=== PATIENT | male | born 1980 | race Caucasian/White ===

== ENCOUNTER → 2021-08-26 19:28 | Outpatient (CLI) | payer MEDICAID, SELFPAY ==
[2021-08-26 20:40] LABS: Basophils # 0.1 K/mm3 (0-0.2); Eosinophils # 0.3 K/mm3 (0.0-0.4); Eosinophils % 3.3 % (0.1-12.0); Hematocrit 47.9 % (42.0-52.0); Hemoglobin 16.4 g/dL (14.1-18.0); Lymphocytes # 2.2 K/mm3 (0.7-4.5); Lymphocytes % 25.6 % (10-50); Mean Corpuscular HGB Conc 34.3 g/dL (31.8-35.4); Mean Corpuscular Hemoglobin 32.5 pg (27.0-31.2); Mean Corpuscular Volume 94.7 fl (80-94); Mean Platelet Volume 8.8 fl (7.4-10.4); Monocytes # 0.5 K/mm3 (0.1-1.0); Monocytes % 5.8 % (1.7-9.3); Neutrophils # 5.4 K/mm3 (1.8-7.8); Neutrophils % 64.2 % (37.0-80.0); Platelet Count 391 K/mm3 (142-424); Red Blood Count 5.06 M/mm3 (4.60-6.20); Red Cell Distribution Width 13.5 % (11.5-17.5); White Blood Count 8.4 K/mm3 (4.8-10.8)
[2021-08-26 21:19] LABS: Alanine Aminotransferase 93 U/L (12-78); Albumin Level 4.9 g/dl (3.5-5.0); Albumin/Globulin Ratio 1.4 (1.1-1.8); Alkaline Phosphatase 100 U/L (38-126); Anion Gap 18.7 mEq/L (5-15); Aspartate Amino Transferase 87 U/L (17-59); Bilirubin,Total 2.4 mg/dl (0.2-1.3); Blood Urea Nitrogen 13 mg/dl (9-20); Calcium 9.6 mg/dl (8.4-10.2); Carbon Dioxide 26 mmol/L (22.0-30.0); Chloride 97 mmol/L (98-107); Chol/HDL Ratio 3.3 (1-3.5); Cholesterol 170 mg/dl (140-200); Estimated Glomerular Filt Rate 124 ml/min (>60); GFR (African American) 150 ML/MIN (>60); Globulin 3.4 g/dL (1.3-3.2); Glucose 97 mg/dl (74-100); HDL Cholesterol 52 mg/dl (40-60); Potassium 3.7 mmoL/L (3.5-5.1); Sodium 138 mmol/L (136-145); Total Protein,Serum 8.3 g/dl (6.3-8.2); Triglycerides 92 mg/dl (30-150); VLDL Cholesterol 18 mg/dL (0-40)
[2021-08-26 21:30] LABS: Direct LDL Cholesterol 84.27 mg/dL (100-129); Free T4 (Free Thyroxine) 1.29 ng/dl (0.78-2.19)
[2021-08-26 21:32] LABS: 25-OH Vitamin D, Total 31.7 ng/mL (30-100)
[2021-08-26 22:07] LABS: Thyroid Stimulating Hormone 0.48 uIU/mL (0.465-4.68)
[2021-08-28 11:17] LABS: HIV Screen 4th Generation wRfx Non Reactive (Non Reactive)
[2021-08-28 12:37] LABS: Hep A Ab, IgM Negative (Negative); Hep A Ab, Total Positive (Negative); Hep B Core Ab, Total Negative (Negative); Hep B Surface Ab, Qual Reactive (.); Hepatitis B Surface Antigen Negative (Negative); Hepatitis C Antibody >11.0 s/co ratio (0.0-0.9)
[2021-08-29 04:08] LABS: ALT (SGPT) P5P 98 IU/L (0-55); Alpha 2-Macroglobulins, Qn 136 mg/dL (110-276); Apolipoprotein A-1 136 mg/dL (101-178); Bilirubin, Total 2.1 mg/dL (0.0-1.2); Fibrosis Score 0.21 (0.00-0.21); GGT 44 IU/L (0-65); Haptoglobin 289 mg/dL (23-355); Necroinflammat Activity Grade A1-A2 (.); Necroinflammat Activity Score 0.52 (0.00-0.17)
[2021-08-29 18:28] LABS: HCV Genotype Charge YES; Hepatitis C Genotype 3 (.)
== END ==
PROVIDERS: Visit Provider Emergency Medicine
DX: R53.83 Other fatigue (principal); E55.9 Vitamin D deficiency, unspecified; R74.8 Abnormal levels of other serum enzymes; R94.5 Abnormal results of liver function studies; Z11.4 Encounter for screening for human immunodeficiency virus [HIV]
CPT/HCPCS: 80053; 80061; 81596; 82306; 84439; 84443; 85025; 86703; 86704; 86706; 86708; 87340; 87380; 87522; 87902; G0432

== ENCOUNTER → 2021-09-11 08:19 | Outpatient (CLI) | payer MEDICAID, SELFPAY ==
--- NOTE | 2021-09-11 08:19 | MR_ITS ---
PROCEDURE: MR LUMBAR SPINE WO CON CLINICAL INDICATION: back pain Left-sided low back pain. Bilateral leg numbness and tingling. Symptoms for years. No injury or trauma. COMPARISON: MR FLASK CLEANER/O MRI-L-SPINE W/O from 07/20/2015 TECHNIQUE: Standard multiplanar multiecho sequences are performed without contrast. 3-D MIP and myelographic images are also rendered and reviewed. Patient had a hard time staying still and best possible images were sent. FINDINGS: At L1-2, there is no significant canal or neural foraminal stenosis. At L2-3, there is no significant canal or neural foraminal stenosis however there is facet arthropathy. At L3-4, the study is nondiagnostic due to patient moving. At L4-5, there is a tiny central disc protrusion. There is facet arthropathy and ligamentum flavum hypertrophy producing mild canal stenosis however no neuroforaminal stenosis. There is significant facet arthropathy at L4-5 with fluid in the facet joints suggesting this may be a pain generator. At L5-S1, there is a moderate size left paracentral disc protrusion producing mild canal stenosis and no neuroforaminal stenosis. There is significant facet arthropathy at this level with fluid in both facet joints suggesting this may be a pain generator. IMPRESSION: Motion limited study demonstrating severe facet arthropathy with edema in the facet joints at L4-5 and L5-S1, suggesting this may be a pain generator. Consider bilateral L4-5 and L5-S1 facet injections. Dictated by: Amy Maldonado MD 09/11/2021 12:49 Amy Maldonado MD in [place] 09/11/2021 12:49
== END ==
PROVIDERS: PCP Emergency Medicine; Visit Provider Emergency Medicine
DX: R01.1 Cardiac murmur, unspecified (principal); M54.9 Dorsalgia, unspecified
CPT/HCPCS: 72148; 76376; 93306

== ENCOUNTER → 2021-09-13 06:46 | Outpatient (CLI) | payer MEDICAID, SELFPAY ==
--- NOTE | 2021-09-13 06:47 | NM_ITS ---
APPROVED REPORT Exam: Nuclear Stress Test Indication: HTN, HYPERLIPIDEMIA, FM HX, C.P., SOB, FATIGUE Patient Location: Outpatient Stress Tech: Sussy Gibson Ht: 5 ft 2 in Wt: 185 lbs HR: 102 bpm BP: 163/111 mmHg BSA: 1.85 m2 BMI: 33.8 History: HTN, HYPERLIPIDEMIA, FM HX, C.P., SOB, FATIGUE Procedure: Patient exercised on Brando protocol 9 :00 minutes and sec, resting heart rate 102 bpm, resting blood pressure 163/111 mmHg, with exercise maximum heart rate achived was 140 bpm which is 78 % of the maximum predicted heart rate and blood pressure was 200/107 mmHg. Test was stopped due to DYSPNEA, SYNCOPE. Patient denied any complaint of chest pain. Patient has good exercise capacity, achieved 10.7 METs of workload on treadmill, the blood pressure response to exercise was Hypertensive. PT DID NOT TAKE HIS MORNING B/P MEDICINE. IN RECOVERY PATIENT'S BLOOD PRESSURE TOBI TO 200/107 [facility] 10[facility] OF BISOPROLOL. Electrocardiogram Sinus rhythm, with exercise there is less than 1.[address] segment depression noted from the baseline EKG. The EKG portion of the exercise Myoview is nondiagnostic as patient did not achieve the target heart rate. Cardiac Stress and Resting SPECT Images: Cardiac Stress and Resting SPECT images were obtained using technetium 99m Myoview 30.0 mCi stress and 10.14 mCi at rest. Gated SPECT for analysis of segmental wall motion and calculation of the ejection fraction also done. Prone images were also obtained. Cardiac stress and resting SPECT images show uniform myocardial activity without segmental perfusion abnormality, computer derived ejection fraction is 51% with no regional wall motion abnormality, right ventricle is normal size and contractility. Conclusion: 1. The EKG portion of exercise Myoview was nondiagnostic as patient did not achieve the target heart rate, patient has good exercise capacity achieved 10.7 mets of workload on treadmill, the blood pressure response to exercise was hypertensive. 2. No scintigraphic evidence of reversible ischemia seen at this level of exercise, compared right ejection fraction is 51% with no regional wall motion abnormality, right ventricle is normal size and contractility. Electronically signed by : Rafa Gayle MD 09/19/2021 12:56:43
--- NOTE | 2021-09-13 06:47 | CA_ITS ---
APPROVED REPORT Exam: Exercise Treadmill Technologist: Sussy Gibson, Ht: 5 ft 2 in Wt: 183 lbs BSA: 1.84 m2 HR: 83 bpm BP: 171/75 mmHg Rhythm: NSR Medical History Medical History: HTN, Hyperlipidemia Medications: Omeprazole,,,,, Aspirin,,,,, Propranolol,,,,, Gabapentin,,,,, HCTZ,,,,, Albuterol,,,,, Trazodone,,,,, Allergies: CODEINE, PROPOXYPHENE Cardiac Risk Factors: HTN, Hyperlipidemia, Smoking Stress Test Details Test: Manual Treadmill, Exercise stress testing was performed using a Brando protocol. HR Resting HR: 102 bpm Max Heart Rate (APMHR): 179.988172 bpm Max HR Achieved: 140 bpm Target HR (85% APMHR): 152.840646 bpm % of APMHR: 78.21 Recovery HR: 93 bpm BP Resting BP: 163/111 mmHg Max BP: 200/107 mmHg Recovery BP: 142.0/82.0 mmHg ECG Resting ECG: NSR Clinical Reason for Termination: Dyspnea Exercise duration: 09:01 min Highest Stage Achieved: Exercise capacity: 10.7 METs Stress ECG Conclusion MAX HR: 140. % OF PM: 92. MAX B/P: 200/107. METS 10.7. TEST STOPPED DUE TO DIZZINESS, SOA. NO CP. PT JUST STATED HE FELT LIKE HE WAS GOING TO PASS OUT. <1.[address] SEGMENT CHANGES. ABNORMAL TO SUBMAXIMAL HEART RATE. Test Summary Stage 3 . . . . . . . . REST . . . . . . . Standing REST 05:03 0.0 0.0 102 . 163/111 . . Stage 1 01:00 10.0 1.7 115 . . . . Stage 1 02:00 10.0 1.7 117 . . . . Stage 1 03:00 10.0 1.7 127 . 138/ 82 . . Stage 2 01:00 12.0 2.5 126 . . . . Stage 2 02:00 12.0 2.5 127 . . . . Stage 2 03:00 12.0 2.5 130 . 150/ 90 . . Stage 3 . . . . . . . Protocol changed to Manual Treadmill Stage 3 01:00 18.0 3.0 135 . . . . Stage 3 02:00 0.0 3.0 135 . . . . Stage 3 03:00 0.0 1.0 132 . . . . Stage 3 03:01 0.0 1.0 132 . . . Stop exercise at 09:01 RECOVERY 01:00 0.0 0.0 123 . . . . RECOVERY 02:00 0.0 0.0 94 . . . . RECOVERY 03:00 0.0 0.0 114 . 200/107 . . RECOVERY 04:00 0.0 0.0 105 . 200/107 . . RECOVERY 05:00 0.0 0.0 118 . 200/107 . . RECOVERY 06:00 0.0 0.0 111 . 198/105 . . RECOVERY 07:00 0.0 0.0 93 . 163/125 . . RECOVERY 08:00 0.0 0.0 115 . 163/125 . . RECOVERY 09:00 0.0 0.0 114 . 163/125 . . RECOVERY 10:00 0.0 0.0 109 . 163/125 . . RECOVERY 11:00 0.0 0.0 118 . 142/ 82 . . RECOVERY 12:00 0.0 0.0 0 . 142/ 82 . . RECOVERY 13:00 0.0 0.0 0 . 142/ 82 . . RECOVERY 14:00 0.0 0.0 0 . 142/ 82 . . RECOVERY 15:00 0.0 0.0 0 . 142/ 82 . . RECOVERY 15:39 0.0 0.0 0 . 142/ 82 . . Electronically signed by : Fadi Bennett MD 09/13/2021 14:29:27
== END ==
PROVIDERS: PCP Emergency Medicine; Visit Provider Internal Medicine Cardiovascular Disease
DX: R07.9 Chest pain, unspecified (principal); R06.00 Dyspnea, unspecified; R42 Dizziness and giddiness; E78.5 Hyperlipidemia, unspecified; I10 Essential (primary) hypertension; J45.909 Unspecified asthma, uncomplicated; K21.9 Gastro-esophageal reflux disease without esophagitis; R06.83 Snoring; R40.0 Somnolence; R53.83 Other fatigue; R94.31 Abnormal electrocardiogram [ECG] [EKG]
CPT/HCPCS: 78452; 93017; 95806; A9502

== ENCOUNTER 2021-09-19 11:48 | Emergency (ER) | payer MEDICAID, SELFPAY ==
[2021-09-19 11:50] VITALS: BP 148/99; PULSE 92; RESP 19; TEMP 37.1; O2SAT 98; BMI 31.8
--- NOTE | 2021-09-19 12:34 | HMH.EDUTC ---
[facility] Disposition Condition on Discharge: Good <Silvia Lock - Last Filed: 09/19/21 21:44> Condition on Discharge: Good Time of Disposition: 12:53 <Catrina Alvarenga - Last Filed: 09/23/21 21:47> Clinical Impression: Shortness of breath Hand swelling Qualifiers: Laterality: bilateral Qualified Code(s): M79.89 - Other specified soft tissue disorders Disposition: Home, Self-Care Additional Instructions: It is important to follow-up with your primary care physician to assess how your symptoms are doing with the treatments that we are giving you. Prescriptions: Naproxen [Naproxen 500mg tab] 500 mg PO BID 10 Days #20 tab Transmission Status: Received by [facility] Referrals: Eric Kay MD [Primary Care Provider] - Medical Decision Making - Medical Records Medical records reviewed: Yes: I reviewed the patient's medical records. - Lab Data Result diagrams: 09/19/21 13:35 09/19/21 13:35 <HaydeSilvia - Last Filed: 09/19/21 21:44> - Tima Inquiry Pt receiving controlled substance: No Tima was queried for this patient: No - Lab Data Result diagrams: 09/19/21 13:35 09/19/21 13:35 <LyleLizette - Last Filed: 09/23/21 21:47> Vital Signs: 09/19/21 11:50 09/19/21 13:40 09/19/21 14:01 Temperature 98.8 F 98.1 F Temperature Source Oral Oral Pulse Rate 72 Pulse Rate [Right Brachial] 92 H 69 Respiratory Rate 19 18 18 Blood Pressure 124/73 Blood Pressure [Right Arm] 148/99 H 138/73 Blood Pressure Mean 90 Blood Pressure Mean [Right Arm] 115 94 Blood Pressure Source [Right Arm] Automatic Cuff Automatic Cuff Blood Pressure Position [Right Arm] Sitting Sitting 02 Sat by Pulse Oximetry 98 99 97 Oxygen Delivery Method Room Air Room Air 09/19/21 14:31 09/19/21 15:43 Temperature 98.1 F Temperature Source Pulse Rate 91 H 74 Pulse Rate [Right Brachial] Respiratory Rate 20 14 Blood Pressure 120/84 109/82 L Blood Pressure [Right Arm] Blood Pressure Mean 96 Blood Pressure Mean [Right Arm] Blood Pressure Source [Right Arm] Blood Pressure Position [Right Arm] 02 Sat by Pulse Oximetry 97 Oxygen Delivery Method - Lab Data Lab Results 09/19/21 13:35: WBC 6.1, RBC 4.91, Hgb 15.5, Hct 47.7, MCV 97.2 H, MCH 31.6 H, MCHC 32.6, RDW 13.7, Plt Count 369, MPV 8.4, Neut % (Auto) 55.8, Lymph % (Auto) 31.5, [place] % (Auto) 6.0, Eos % (Auto) 5.1, Baso % (Auto) 1.6, Neut # (Auto) 3.4, Lymph # (Auto) 1.9, [place] # (Auto) 0.4, Eos # (Auto) 0.3, Baso # (Auto) 0.1 09/19/21 13:35: Sodium 140, Potassium 4.1, Chloride 102, Carbon Dioxide 31 H, Anion Gap 11.1, BUN 6 L, Creatinine 0.50 L, Estimated Creat Clear 225, Estimated GFR 183, Est GFR ( Amer) 222, Glucose 105 H, Calcium 9.0, Total Bilirubin 0.5, AST 62 H, ALT 63, Alkaline Phosphatase 106, Troponin I < 0.01, NT-Pro-B Natriuret Pep 59.1, Total Protein 7.4, Albumin 4.3, Globulin 3.1, Albumin/Globulin Ratio 1.4 Orders (Tests/Meds): ED MEDICATIONS Discontinued Medications Generic Name Dose Route Start Last Admin Trade Name Freq PRN Reason Stop Dose Admin Belladonna Alkaloids 60 ml 09/19/21 14:24 09/19/21 14:36 Gi Cocktail 60ml Udc PO 09/19/21 14:25 60 ml ONCE ONE Administration Medical Decision Narrative: Seen here in the emergency department, EKG was normal. Patient did have an elevation of troponin, BNP was not elevated. Patient main concern was his bilateral hand tingling and numbness. He was given a GI cocktail, was hemodynamically stable throughout the course of his emergency department stay. chest x-ray was completed and patient had no significant changes on chest x-ray. Findings discussed with the patient, he was encouraged to take naproxen in the meantime for his hand pain and to follow-up with his primary care physician. (Hayde,Silvia) Patient states he recently had stress test and seen Cardiology clinic but they had to stop the stress test due to he felt light headed like he was going t
--- NOTE | 2021-09-19 12:53 | PC.NURSE ---
PATIENT SENT TO ER PER Jena ALEJO APRN FOR FURTHER EVALUATION. REPORT GIVEN TO Amairani NEELY RN
--- NOTE | 2021-09-19 13:24 | ECG_ITS ---
APPROVED REPORT Exam: Resting ECG HR:74 bpm ECG Measurements Heart Rate 74 AXES AK 120 P 46 QRSd 78 QRS 83 QT 364 T 78 QTc 404 Conclusion Normal sinus rhythm Normal ECG Electronically signed by : Daniel Peterson MD 09/20/2021 22:38:51
[2021-09-19 13:40] VITALS: BP 138/73; PULSE 69; RESP 18; TEMP 36.7; O2SAT 99; BMI 32.9
--- NOTE | 2021-09-19 13:44 | XR_ITS ---
PROCEDURE: XR CHEST 2V CLINICAL HISTORY: tingling COMPARISON: CR CXR CHEST(2 VIEWS-NOT PORTABLE) from 11/22/2014 CR CXR CHEST(2 VIEWS-NOT PORTABLE) from 07/12/2015 CR CXR CHEST(2 VIEWS-NOT PORTABLE) from 12/07/2015 FINDINGS: The cardiomediastinal silhouette and pulmonary vascularity are within normal limits. Calcified granulomas are present in the right lower lobe and left upper lobe. The remaining lungs are clear. No acute bony abnormalities. IMPRESSION: No acute findings. Dictated by: Riaz Ragsdale MD 09/19/2021 15:46 Riaz Ragsdale MD in [place] 09/19/2021 15:46
[2021-09-19 13:53] LABS: Basophils # 0.1 K/mm3 (0-0.2); Basophils % 1.6 % (0.1-2.0); Eosinophils # 0.3 K/mm3 (0.0-0.4); Eosinophils % 5.1 % (0.1-12.0); Hematocrit 47.7 % (42.0-52.0); Hemoglobin 15.5 g/dL (14.1-18.0); Lymphocytes # 1.9 K/mm3 (0.7-4.5); Lymphocytes % 31.5 % (10-50); Mean Corpuscular HGB Conc 32.6 g/dL (31.8-35.4); Mean Corpuscular Hemoglobin 31.6 pg (27.0-31.2); Mean Corpuscular Volume 97.2 fl (80-94); Mean Platelet Volume 8.4 fl (7.4-10.4); Monocytes # 0.4 K/mm3 (0.1-1.0); Neutrophils # 3.4 K/mm3 (1.8-7.8); Neutrophils % 55.8 % (37.0-80.0); Platelet Count 369 K/mm3 (142-424); Red Blood Count 4.91 M/mm3 (4.60-6.20); Red Cell Distribution Width 13.7 % (11.5-17.5); White Blood Count 6.1 K/mm3 (4.8-10.8)
[2021-09-19 14:01] VITALS: BP 124/73; PULSE 72; RESP 18; O2SAT 97
[2021-09-19 14:07] LABS: Chloride 102 mmol/L (98-107); Potassium 4.1 mmoL/L (3.5-5.1); Sodium 140 mmol/L (136-145)
[2021-09-19 14:10] LABS: Alanine Aminotransferase 63 U/L (12-78); Albumin Level 4.3 g/dl (3.5-5.0); Albumin/Globulin Ratio 1.4 (1.1-1.8); Alkaline Phosphatase 106 U/L (38-126); Anion Gap 11.1 mEq/L (5-15); Aspartate Amino Transferase 62 U/L (17-59); Bilirubin,Total 0.5 mg/dl (0.2-1.3); Blood Urea Nitrogen 6 mg/dl (9-20); Carbon Dioxide 31 mmol/L (22.0-30.0); Creatinine Clearance Estimated 225 mL/min (50-200); Estimated Glomerular Filt Rate 183 ml/min (>60); GFR (African American) 222 ML/MIN (>60); Globulin 3.1 g/dL (1.3-3.2); Glucose 105 mg/dl (74-100); Total Protein,Serum 7.4 g/dl (6.3-8.2)
[2021-09-19 14:19] LABS: NT Pro Brain Natriuretic Pep. 59.1 pg/mL (0-125)
[2021-09-19 14:23] LABS: Troponin I < 0.01 ng/ml (0.00-0.034)
[2021-09-19 14:31] VITALS: BP 120/84; PULSE 91; RESP 20; O2SAT 97
[2021-09-19 15:43] VITALS: BP 109/82; PULSE 74; RESP 14; TEMP 36.7; O2SAT 97
== END 2021-09-19 15:44 | disposition home or self-care (01) ==
LOC: UTC 11:49 → ER 12:54
PROVIDERS: Emergency Provider Emergency Medicine; PCP Emergency Medicine
DX: R20.2 Paresthesia of skin (principal); M79.89 Other specified soft tissue disorders; R06.02 Shortness of breath
CPT/HCPCS: 71046; 80053; 83880; 84484; 85025; 93005; 99283

== ENCOUNTER 2021-09-24 13:05 | Outpatient (CLI) | payer MEDICAID, SELFPAY ==
[2021-09-24 14:01] VITALS: BP 150/92; PULSE 101; RESP 18; TEMP 36.8; O2SAT 97
[2021-09-24 15:23] VITALS: BP 149/97; PULSE 99; RESP 17; O2SAT 97
== END 2021-09-24 15:30 | disposition home or self-care (01) ==
LOC: INF 13:06
PROVIDERS: PCP Emergency Medicine; Visit Provider Emergency Medicine
DX: E86.0 Dehydration (principal)
CPT/HCPCS: 96360; 96375; J2405

== ENCOUNTER → 2021-10-14 15:33 | Outpatient (CLI) | payer MEDICAID, SELFPAY | PROVIDERS: Visit Provider Emergency Medicine | DX: R60.9 Edema, unspecified (principal) ==

== ENCOUNTER → 2021-10-15 17:13 | Outpatient (CLI) | payer MEDICAID, SELFPAY ==
[2021-10-15 18:28] LABS: Basophils # 0.1 K/mm3 (0-0.2); Basophils % 0.6 % (0.1-2.0); Eosinophils # 0.1 K/mm3 (0.0-0.4); Eosinophils % 1.5 % (0.1-12.0); Hematocrit 45.6 % (42.0-52.0); Hemoglobin 15.6 g/dL (14.1-18.0); Lymphocytes # 2.3 K/mm3 (0.7-4.5); Lymphocytes % 24.2 % (10-50); Mean Corpuscular HGB Conc 34.1 g/dL (31.8-35.4); Mean Corpuscular Hemoglobin 30.8 pg (27.0-31.2); Mean Corpuscular Volume 90.2 fl (80-94); Mean Platelet Volume 8.2 fl (7.4-10.4); Monocytes # 0.5 K/mm3 (0.1-1.0); Neutrophils # 6.6 K/mm3 (1.8-7.8); Neutrophils % 68.8 % (37.0-80.0); Platelet Count 508 K/mm3 (142-424); Red Blood Count 5.06 M/mm3 (4.60-6.20); Red Cell Distribution Width 13.6 % (11.5-17.5); White Blood Count 9.6 K/mm3 (4.8-10.8)
[2021-10-15 18:35] LABS: Activated Partial Thrombo Time 29.4 seconds (22.8-30.6); INR 0.99 (0.9-1.1); Prothrombin Time 11.2 seconds (10.1-12.5)
[2021-10-15 19:00] LABS: Alanine Aminotransferase 37 U/L (12-78); Albumin Level 4.8 g/dl (3.5-5.0); Albumin/Globulin Ratio 1.6 (1.1-1.8); Alkaline Phosphatase 107 U/L (38-126); Anion Gap 14.3 mEq/L (5-15); Aspartate Amino Transferase 39 U/L (17-59); Bilirubin,Total 1.3 mg/dl (0.2-1.3); Blood Urea Nitrogen 18 mg/dl (9-20); Calcium 10.1 mg/dl (8.4-10.2); Carbon Dioxide 32 mmol/L (22.0-30.0); Chloride 96 mmol/L (98-107); Estimated Glomerular Filt Rate 124 ml/min (>60); GFR (African American) 150 ML/MIN (>60); Glucose 93 mg/dl (74-100); Potassium 3.3 mmoL/L (3.5-5.1); Sodium 139 mmol/L (136-145); Total Protein,Serum 7.8 g/dl (6.3-8.2); Uric Acid 6.5 mg/dl (3.5-8.5)
[2021-10-15 19:05] LABS: C-Reactive Protein 3.1 mg/L (0-4)
[2021-10-15 19:16] LABS: Procalcitonin 0.107 ng/mL (0.0-2.0)
[2021-10-15 19:51] LABS: Erythrocyte Sedimentation Rate 8 mm/hr (0-15)
[2021-10-17 11:30] LABS: RA Latex Turbid. <10.0 IU/mL (<14.0)
[2021-10-17 12:16] LABS: Hep B Core Ab, Total Negative (Negative); Hep B Surface Ab, Qual Reactive (.)
[2021-10-17 13:31] LABS: Anti-Centromere B Antibodies <0.2 AI (0.0-0.9); Anti-DNA (DS) Ab Qn <1 IU/mL (0-9); Anti-Jo-1 <0.2 AI (0.0-0.9); Anti-Smith Antibody <0.2 AI (0.0-0.9); Antichromatin Antibodies <0.2 AI (0.0-0.9); Antiscleroderma-70 Antibodies <0.2 AI (0.0-0.9); RNP Antibodies <0.2 AI (0.0-0.9); Sjogren's Anti-SS-A <0.2 AI (0.0-0.9); Sjogren's Anti-SS-B <0.2 AI (0.0-0.9)
[2021-10-18 00:07] LABS: Anti-Cyclic Citrullinated Pept 6 units (0-19)
[2021-10-18 05:17] LABS: Lupus Reflex Interpretation Comment: (.); PTT-LA 39.2 sec (0.0-51.9); dRVVT 42.8 sec (0.0-47.0)
[2021-10-22 09:25] LABS: Arsenic, Blood <1 ug/L (2-23); Lead, Blood 3 ug/dL (0-4); Mercury, Blood <1.0 ug/L (0.0-14.9)
== END ==
PROVIDERS: Visit Provider Emergency Medicine
DX: R53.83 Other fatigue (principal); R60.9 Edema, unspecified; E87.6 Hypokalemia
CPT/HCPCS: 80053; 82175; 83655; 83825; 84145; 84550; 85025; 85610; 85613; 85651; 85730; 86140; 86200; 86225; 86235; 86431; 86618; 86704; 86706

== ENCOUNTER 2021-10-30 16:00 | Outpatient (RCR) | payer MEDICAID, SELFPAY ==
--- NOTE | 2021-10-22 17:11 | HMH.PTOPEV ---
PT Outpatient Evaluation Rehab PT Outpatient Evaluation Start: 10/22/21 16:09 Freq: Status: Active Protocol: Document 10/22/21 16:11 NIRMAL (Rec: 10/22/21 17:11 KALLIESORAYA [id number]) Electronically Signed By Anatoliy Solorio PT 10/22/21 16:11 Outpatient Therapy Subjective History Subjective History This is the initial evaluation for Mina taylor. Pt is a 41 y/o male referred for gait abnormality and foot drop. Pt states he was diagnosed with foot drop years ago but this new episode started a month ago. Pt reports that he feels pins, needles, numbness, swelling, and 8/10 pain in the bottom of his feet when he walks. Pt reports no family history of DM but does have heart disease. Pt states he can walk 15 minutes before pain starts in feet and 20 min before he needs a break. - note done by Alicia Johnson , SPT Chief Complaint Pain,Swelling,Paresthesia, Weakness,Decreased Coordination Symptom Type Ache,Stabbing,Burning,Numbness ,Tingling Symptoms Relieved By Rest/Positioning Symptoms Aggravated By Physical Activity,Walking Prior Functional Limitations None Current Functional Limitations Standing,Recreation Activity, Walking,Stairs,Balance Symptom Description Activity Dependent Level of pain today (0-10) 8 Pain scale - at its best (0-10) 0 Pain scale - at its worst (0-10) 8 Hip/Knee Eval MMT bilateral Hip Flexion Strength Grade 4- Good- Hip Abduction Strength Grade 4- Good- Hip Adduction Strength Grade 4- Good- Knee Extension Strength Grade 4 Good Knee Flexion Strength Grade 4- Good- ROM Hip ROM Reason Not Measured Within Functional Limits Knee ROM Reason Not Measured Within Functional Limits DTR Rt Patellar 2+ Lt Patellar 2+ Sensation LE Dermatome Level L3,L4,L5,S1,S2 Comment normal Special Tests Hip 90-90 Straight Leg Raise Test Negative Left,Negative Right Sciatic Nerve Tension Test Negative Left,Negative Right Hip Trendelenburg Test Positive Left,Positive Right Balance Eval Subjective Hx of Complaint Comment
== END 2021-10-30 16:05 | disposition home or self-care (01) ==
LOC: PT 16:00
PROVIDERS: PCP Emergency Medicine; Visit Provider Emergency Medicine
DX: R26.9 Unspecified abnormalities of gait and mobility (principal); M21.379 Foot drop, unspecified foot
CPT/HCPCS: 97110; 97163

== ENCOUNTER → 2021-10-31 14:45 | Outpatient (POV) | payer MEDICAID, SELFPAY ==
[2021-10-31 15:14] VITALS: BP 155/90; PULSE 109; RESP 18; O2SAT 96; BMI 31.6
--- NOTE | 2021-11-03 14:26 | HMH.PMCON ---
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 Status: Acute Category: Medical Code(s): M47.816 - Spondylosis without myelopathy or radiculopathy, lumbar region (2) Lumbar radiculopathy Status: Acute Category: Medical Code(s): M54.16 - Radiculopathy, lumbar region (3) Spinal stenosis Status: Acute Category: Medical Code(s): M48.00 - Spinal stenosis, site unspecified (4) Facet arthropathy Status: Acute Category: Medical Code(s): M47.819 - Spondylosis without myelopathy or radiculopathy, site unspecified - Assessment and plan all Dx Assessment and Plan for all problems:: At this time, the patient is not open to injective therapy or interventional therapies. He is not currently on anti-inflammatories. He has tried physical therapy in the past for more than 6 weeks with limited relief. We will start him on diclofenac 75 mg 1 tablet p.o. twice daily. He has been encouraged to take the medication with food and to discontinue all [id number]-[id number] anti-inflammatories while taking diclofenac. We will also start patient on Cymbalta 30 mg 1 tablet p.o. daily to take with his gabapentin. As well we will give the patient a 1 week dose of prednisone at 20 mg 1 tablet p.o. twice daily. We will follow up with the patient in 2 weeks to see if the medication is giving him any relief. Risks and benefits of the medication have been explained in detail to the patient. If side effects do present with the medication, patient has been advised to stop the medication immediately and call the clinic. The patient has been advised to consult with his/her primary care provider and pharmacist regarding drug-drug interaction of medications currently prescribed. Patient has been instructed to contact the clinic with any concerns before the next appointment. Dr. Locke has reviewed this note and agrees with this plan of care. This note was dictated using voice recognition software and make contain errors or omissions. HPI - Data of Consult Patient: new to practice Consult date: 10/31/21 Requesting Physician: Alicia Moran APRN - Consult Narrative Reason for consult: Low back pain History of present illness: Mr. Rm is a 41 year old male who presents today for consultation for low back pain. The patient says that he has low back pain that radiates into left hip, left leg and causes numbness and tingling into his left lower extremity. He does report the pain to be worse with any type of movement. He is having difficulty standing, walking or sitting. He also says that he is having difficulty grasping objects due to pain in his bilateral upper extremities. Patient was previously on gabapentin 800 mg per report but says he is now been decreased to gabapentin 400 mg 1 tablet p.o. 3 times daily. He says that gabapentin did give him relief in the past but does not seem to be relieving his pain as well as before with his new dose. He denies any saddle anesthesia or any changes in bowel or bladder habit. He does report his pain to be worse with sitting, standing, and walking. He says that lying flat is also uncomfortable. He does have to reposition often to get relief. He does complain of heaviness and weakness in bilateral lower extremities as well. He denies any history of fractures, surgery or trauma to his lumbar spine. He is not open to injective therapy. He is not open to interventional therapies at this time. He does rate his pain an 8 out of 10. CC: Alicia Moran APRN [facility] History I have reviewed the patient's past medical history: Yes Medical History: Reports:: Anxiety, Asthma, Depression, Hyperlipidemia, Hypertension *Have you ever received a pneumonia vaccine?: No *Have you received a flu vaccine this season?: No Other Surgeries: Yes: No Previous Surgery, Other Amputation: No Fractures: Yes - *Social History Smoking Status: Current every day smoker Tobacco Type: e-cigarettes # Pac
== END ==
PROVIDERS: Visit Provider Clinical Nurse Specialist Family Health
DX: M47.896 Other spondylosis, lumbar region (principal); M54.16 Radiculopathy, lumbar region; M48.00 Spinal stenosis, site unspecified; M47.899 Other spondylosis, site unspecified
CPT/HCPCS: 99202; G0463

== ENCOUNTER → 2022-01-21 13:17 | Outpatient (CLI) | payer MEDICAID, SELFPAY ==
--- NOTE | 2022-01-21 13:20 | XR_ITS ---
FINAL REPORT CLINICAL HISTORY: left hand numbness, pain FINDINGS: LEFT WRIST Three views demonstrate no acute fracture or dislocation. The joint spaces appear normal. The visualized bony structures are well aligned. No soft tissue abnormality is seen. IMPRESSION: No acute process. Reviewed, Interpreted and Dictated by Declan Colbert III, MD Transcribed by Bess Gerard Authenticated by Declan Colbert III, MD on 01/21/2022 02:42:39 PM [facility]
--- NOTE | 2022-01-21 13:20 | XR_ITS ---
FINAL REPORT CLINICAL HISTORY: hand numbness, pain FINDINGS: RIGHT WRIST Three views demonstrate no acute fracture or dislocation. The joint spaces appear normal. The visualized bony structures are well aligned. No soft tissue abnormality is seen. IMPRESSION: No acute process. Reviewed, Interpreted and Dictated by Declan Colbert III, MD Transcribed by Bess Gerard Authenticated by Declan Colbert III, MD on 01/21/2022 02:43:08 PM [facility]
== END ==
PROVIDERS: PCP Emergency Medicine; Visit Provider Orthopaedic Surgery
DX: M79.642 Pain in left hand (principal); M79.641 Pain in right hand; M25.532 Pain in left wrist; M25.531 Pain in right wrist
CPT/HCPCS: 73110

== ENCOUNTER 2022-01-21 15:35 | Outpatient (RCR) | payer MEDICAID, SELFPAY | END 2022-01-21 16:10 | disposition home or self-care (01) | LOC: OT 15:35 | PROVIDERS: Visit Provider Orthopaedic Surgery | DX: G56.03 Carpal tunnel syndrome, bilateral upper limbs (principal) | CPT/HCPCS: 97763 ==

== ENCOUNTER 2022-01-28 18:21 | Emergency (ER) | payer MEDICAID, SELFPAY ==
[2022-01-28 20:01] VITALS: BP 141/92; PULSE 76; RESP 19; TEMP 37; O2SAT 98; BMI 29.2
--- NOTE | 2022-01-28 20:07 | HMH.EDUTC ---
[facility] [place] Disposition Clinical Impression: Encounter for screening for COVID-19 Disposition: Home, Self-Care Condition on Discharge: Good Instructions: Preventing the Spread of Coronavirus Discharge Instructions Additional Instructions: Drink plenty of fluids. Take tylenol for pain or fever. Return if you begin to have difficulty breathing. Follow up with your regular doctor. GO TO THE ER FOR ANY WORSENING SYMPTOMS Referrals: Eric Kay MD [Primary Care Provider] - Time of Disposition: 20:15 Medical Decision Making - Medical Records Medical records reviewed: No: I reviewed the patient's medical records. - Tima Inquiry Pt receiving controlled substance: No Vital Signs: 01/28/22 20:01 01/28/22 20:16 Temperature 98.6 F 98.6 F Temperature Source Oral Pulse Rate 76 Pulse Rate [Left] 76 Respiratory Rate 19 19 Blood Pressure 141/92 H Blood Pressure [Right Arm] 141/92 H Blood Pressure Mean [Right Arm] 108 02 Sat by Pulse Oximetry 98 Orders (Tests/Meds): ORDERS Category Date Time Status Covid-19 Nasal PCR ([facility]) Routine Lab 01/28/22 20:00 Received [facility] [place] HPI - General Stated complaint: covid test for surg 01/30 Time Seen by Provider: 01/28/22 20:07 Mode of Arrival: Ambulatory Source of Information: Patient Limitations: No Limitations Description of Symptoms (Recalled from Triage Doc. by RN): pt needs a covid test for a procedure. HEENT Symptoms (Recalled from RN notes): No Resp Symptoms (Recalled from RN notes): No Skin Symptoms (Recalled from RN notes): No MS Symptoms (Recalled from RN notes): No Functional Status (Recalled from RN notes): wnl - History of Present Illness Provider Complaint: He is here to have a covid-19 test before he has carpal tunnel surgery. HE denies any complaints. - Related Data Home Medications Medication Instructions Recorded Confirmed Albuterol Sulfate [Albuterol See Rx Instructions .ROUTE .COMPLEX 01/28/22 01/28/22 Sulfate Hfa] Aspirin [Low Dose Aspirin EC] See Rx Instructions .ROUTE .COMPLEX 01/28/22 01/28/22 Diclofenac Sodium [Diclofenac 75mg 75 mg PO BID 01/28/22 01/28/22 Tab] Duloxetine HCl [Cymbalta 30mg 30 mg PO DAILY 01/28/22 01/28/22 capsule] Gabapentin 600 mg PO TID 01/28/22 01/28/22 Meloxicam See Rx Instructions .ROUTE .COMPLEX 01/28/22 01/28/22 Naproxen [Naproxen 500mg tab] 500 mg PO BID 01/28/22 01/28/22 Omeprazole See Rx Instructions .ROUTE .COMPLEX 01/28/22 01/28/22 Trazodone HCl See Rx Instructions .ROUTE .COMPLEX 01/28/22 01/28/22 Triazolam 0.25 mg PO ONCE 01/28/22 01/28/22 bisoproloL fumarate [Bisoprolol 10 mg PO DAILY 01/28/22 01/28/22 Fumarate] hydroCHLOROthiazide [HCTZ 25mg 25 mg PO AM 01/28/22 01/28/22 tab] Allergies Allergy/AdvReac Type Severity Reaction Status Date / Time sulfamethoxazole Allergy Mild RASH Verified 01/21/22 14:24 [From Bactrim] trimethoprim [From Bactrim] Allergy Mild RASH Verified 01/21/22 14:24 codeine Allergy Verified 01/21/22 14:24 propoxyphene Allergy Verified 01/21/22 14:24 - Worker's Comp Is this a Worker's Comp case?: No [facility] History - Hepatitis A Screen Drug use history?: No High risk sexual behaviors?: No History of sexually transmitted infection?: No Currently employed?: No Childcare worker?: No Do you have indoor plumbing?: Yes Do you have electricity?: Yes Attestation statement:: This patient has been screened for Hepatitis A risk factors. I have reviewed the patient's past medical history: Yes Medical History: Reports:: Anxiety, Asthma, Depression, Hyperlipidemia, Hypertension Denies:: Cancer, Diabetes Mellitus Type 1, Diabetes Mellitus Type 2, Internal Pacemaker, MRSA Other Surgeries: Yes: No Previous Surgery, Other. No: Pacemaker Amputation: No Fractures: Yes - Social History Smoking Status: Current every day smoker Tobacco Type: e-cigarettes # Packs/Day (cigarettes): 1 Alcohol Intake: never Substance Use Type:
[2022-01-28 20:16] VITALS: BP 141/92; PULSE 76; RESP 19; TEMP 37
== END 2022-01-28 20:17 | disposition home or self-care (01) ==
PROVIDERS: Emergency Provider Nurse Practitioner Family; PCP Emergency Medicine; Referring Provider Orthopaedic Surgery
DX: Z03.89 Encounter for observation for other suspected diseases and conditions ruled out (principal); I10 Essential (primary) hypertension; E78.5 Hyperlipidemia, unspecified; J45.909 Unspecified asthma, uncomplicated; F32.A Depression, unspecified; F41.9 Anxiety disorder, unspecified; F17.290 Nicotine dependence, other tobacco product, uncomplicated; Z20.822 Contact with and (suspected) exposure to COVID-19; Z79.1 Long term (current) use of non-steroidal anti-inflammatories (NSAID); Z79.51 Long term (current) use of inhaled steroids; Z79.82 Long term (current) use of aspirin; Z79.899 Other long term (current) drug therapy; Z88.2 Allergy status to sulfonamides; Z88.5 Allergy status to narcotic agent; Z88.6 Allergy status to analgesic agent; Z88.8 Allergy status to other drugs, medicaments and biological substances
CPT/HCPCS: 99212; C9803; G0463; U0003; U0005

== ENCOUNTER 2022-01-30 10:53 | Day surgery (SDC) | payer MEDICAID, SELFPAY ==
[2022-01-28 15:14] VITALS: BMI 31.1
[2022-01-30] VITALS (10 sets, daily range): BP systolic 105–160; BP diastolic 57–93; PULSE 84–99; RESP 18; TEMP 36.7–37.3; O2SAT 93–97
--- NOTE | 2022-01-30 11:37 | P.PN_ITS ---
[facility] Anesthesia Checklist - Patient Identification Patient Identification: Arm Band - Structural Data Admitted From: Home Planned Operative Procedure/s: CTR Consent for Planned Operative Procedure(s) Verified: Yes - NPO Status Verified Time NPO: 00:00 - Additional verifications Anesthesia Reactions: No Hx Blood Transfusions: No - Airway Assessment C-Spine Mobility Assessed: Yes TMJ Mobility Assessed: Yes Dentition: Edentulous - Neurological Assessment Level of Consciousness: Awake Hx Seizures: No Numbness or tingling in extremities: No - Anesthesia Plan Anesthesia Risk discussed: Yes Anesthesia Plan: Verified ASA Class: III Anesthesia Type: MAC [facility] History I have reviewed the patient's past medical history: Yes Medical History: Reports:: Anxiety, Asthma, Depression, Gastroesophageal Reflux Disease(GERD), Hepatitis (Hep. C), Hyperlipidemia, Hypertension Denies:: Cancer, Diabetes Mellitus Type 1, Diabetes Mellitus Type 2, Internal Pacemaker, MRSA, Seizures *Have you ever received a pneumonia vaccine?: No *Have you received a flu vaccine this season?: No Anesthesia experience/problems:: None Other Surgeries: Yes: No Previous Surgery, Other. No: Pacemaker Amputation: No Fractures: Yes - *Social History Smoking Status: Current every day smoker Tobacco Type: e-cigarettes # Packs/Day (cigarettes): 1 Alcohol Intake: never Substance Use Type: marijuana *Occupational Status:: unemployed, disabled Housing: house Household Members: none *Travel in the last 8 weeks: None - Psychiatric History Pschychiatric History:: Reports:: Anxiety, Depression Family Hx:: No significant family history
[2022-01-30 12:04] LABS: Basophils # 0.1 K/mm3 (0-0.2); Basophils % 1.5 % (0.1-2.0); Eosinophils # 0.2 K/mm3 (0.0-0.4); Eosinophils % 2.3 % (0.1-12.0); Hematocrit 44.5 % (42.0-52.0); Hemoglobin 15.1 g/dL (14.1-18.0); Lymphocytes # 2.7 K/mm3 (0.7-4.5); Mean Corpuscular HGB Conc 33.8 g/dL (31.8-35.4); Mean Corpuscular Hemoglobin 30.1 pg (27.0-31.2); Mean Platelet Volume 8.2 fl (7.4-10.4); Monocytes # 0.4 K/mm3 (0.1-1.0); Monocytes % 5.8 % (1.7-9.3); Neutrophils # 4.2 K/mm3 (1.8-7.8); Neutrophils % 55.3 % (37.0-80.0); Platelet Count 469 K/mm3 (142-424); Red Cell Distribution Width 13.6 % (11.5-17.5); White Blood Count 7.6 K/mm3 (4.8-10.8)
[2022-01-30 12:08] LABS: Chloride 103 mmol/L (98-107); Potassium 4.4 mmoL/L (3.5-5.1); Sodium 137 mmol/L (136-145)
[2022-01-30 12:11] LABS: Alanine Aminotransferase 73 U/L (12-78); Albumin Level 4.6 g/dl (3.5-5.0); Albumin/Globulin Ratio 1.5 (1.1-1.8); Alkaline Phosphatase 113 U/L (38-126); Anion Gap 14.4 mEq/L (5-15); Aspartate Amino Transferase 68 U/L (17-59); Bilirubin,Total 1.3 mg/dl (0.2-1.3); Blood Urea Nitrogen 15 mg/dl (9-20); Calcium 8.8 mg/dl (8.4-10.2); Carbon Dioxide 24 mmol/L (22.0-30.0); Creatinine Clearance Estimated 177 mL/min (50-200); Estimated Glomerular Filt Rate 148 ml/min (>60); GFR (African American) 180 ML/MIN (>60); Glucose 101 mg/dl (74-100); Total Protein,Serum 7.6 g/dl (6.3-8.2)
--- NOTE | 2022-01-30 13:48 | SUR.PHASEII ---
1328- received from OR- report from Kevin HAILE. ronda wrap dsg noted to right wrist CDI. Oral airway remains in and pt remains sedated at this time. no o2 required, sat 93% on room air. blood pressure cuff olaced on left lowere arm, left upper arm appears slightly swollen and was like this upon arrival to hospital per pt/family.
--- NOTE | 2022-01-30 13:54 | SUR.PHASEII ---
1350- per my note earlier I noted the swollen possible deep skin abscess to be in the location of the left upper arm. this is incorrect, the swollen possible deep abscess area is in the left anterior AC area. The IV is noted in left upper area and shows no s/s of infiltration/swelling.
--- NOTE | 2022-01-30 14:09 | SUR.PHASEII ---
1405- Dr Anand notified of possible left AC deep tissue abscess. No further orders at this time.
--- NOTE | 2022-01-30 14:11 | SUR.PHASEII ---
1410- also noted track cox on lower arm/wrist area. Dr Anand notified of these as well.
--- NOTE | 2022-01-30 14:24 | SUR.PHASEII ---
1420- Dr Anand at bedside examing pt. Pt remains sedated/sleeping. family updated.
--- NOTE | 2022-01-30 15:02 | SUR.PHASEII ---
1500- pt arousable but agitated after narcan 0.2 given. rolling in bed, will not answer questions approprietly. scratching and moving and rolling uncontrollably on stretcher. father at bedside
--- NOTE | 2022-01-31 00:05 | [facility].OPNOTE ---
Date of procedure: 01/30/22 Pre-op Diagnosis:: Carpal tunnel syndrome, right wrist Post-op Diagnosis:: Same Procedure performed:: Open carpal tunnel release, right wrist Surgeon:: Adrian Anand MD IT TRAINER:: Kalia Simpson Anesthesia: MAC Estimated blood loss (mL): 2 Clinical Note:: Patient is a 41-year-old male with bilateral carpal tunnel syndrome with long-standing symptoms. EMG/NCV results confirmed bilateral carpal tunnel syndrome, electrophysiologically severe on the right and moderate on the left. Patient failed to respond adequately to conservative management. Therefore, he elected to proceed with right carpal tunnel release to begin with. The carpal tunnel release surgery was necessary to relieve symptoms, preserve the remaining fibers of the median nerve, improve function and decrease the pain, paresthesias and weakness and to prevent permanent nerve damage. Please refer to my office note for full details. Operative findings:: The intraoperative findings showed the median nerve to be very tightly compressed and hyperemic. The flexor retinaculum was noted to be thick and tight. There was mild synovitis in the carpal tunnel. There was no evidence of any space-occupying lesions within the carpal tunnel. Operative note:: On the day of the surgery the patient was met in the preoperative area. Patient was positively identified and the operative site was marked and initialed by me. A physical examination was performed and the chart was updated. I again discussed the procedure, risks and benefits and alternatives with the patient. The complications discussed include but are not limited to- bleeding, injury to nerves, blood vessels and tendons, infection, wound dehiscence, incomplete relief/continued pain, persistent numbness, palmar hypersensitivity, pillar pain, DVT/PE, complex regional pain syndrome(CRPS), worsening of nerve damage, failure of the condition to improve, incomplete return of function, bowstringing of tendons, weakness of bicycle mechanic strength, recurrence, failure of the surgery to accomplish the desired goals, decreased use of the hand, loss of use of the arm, loss of the hand or arm, loss of life. Likely need for further surgery in the future has been discussed. I've indicated to the patient where the proposed incision would be made and also discussed the possibility of extending the incision if needed to accomplish an effective release. We have discussed how the goal of surgery is to protect the fibers which have remained healthy and hopefully reverse the symptoms of the fibers which are compromised but still recoverable. We have explained that, fibers that are permanently damaged will not recover. We have also discussed the anesthetic options which include local, regional and general. Patient expressed a preference for a regional Anibal's block. Patient asked appropriate questions and all have been answered by me. Patient understood the risks, agreed to proceed with surgery, signed the consent form and no guarantees or assurances were given or implied. The patient was brought to the operating room and placed supine on the operating table. The right upper extremity was placed over a side table. All the bony prominences were well-padded. The patient had MAC anesthesia administered by the rotary helper. The right upper extremity was prepped and draped in the usual sterile fashion. A preprocedure timeout was performed as per hospital policy. The skin incision was marked using the Bernal's landmarks, just ulnar to the thenar crease. The limb was exsanguinated with the Esmarch bandage and tourniquet was inflated to 250 mmHg. Please see nursing records for the total tourniquet time. Bernal's landmarks were utilized and a skin incision was made parallel and just ulnar to the thenar crease with a 15 blade. Blunt tissue dissection was carried through the subcutaneous tissue down to the palmar fascia. The palmar fascia was incised with the knife to reveal the tr
== END 2022-01-30 16:03 | disposition home or self-care (01) ==
LOC: OR 10:54
PROVIDERS: PCP Emergency Medicine; Visit Provider Orthopaedic Surgery
PROC: (CPT 64721; principal; 2022-01-30 12:00)
DX: G56.01 Carpal tunnel syndrome, right upper limb (principal)
CPT/HCPCS: 64721; 80053; 85025; 96374; J2704